=== PATIENT | male | born 1970 | race Hispanic/Latino ===

== ENCOUNTER 2023-06-09 23:37 | Inpatient (IN) | payer OTHER, SELFPAY ==
[2023-06-10 00:32] LABS: #Basophils 0.1 thou/uL (0.0-0.2); #Eosinphils 0.1 thou/uL (0.0-0.7); #Monocytes 0.7 thou/uL (0.11-0.59); #Neutrophils 2.9 thou/uL (1.40-6.50); %Basophils 0.8 % (0.0-1.0); %Eosinophils 1.3 % (0.0-10.0); %Lymphocytes 38.4 % (21.0-51.0); %Monocytes 11.5 % (0.0-10.0); %Neutrophils 47.5 % (42.0-75.0); Hematocrit 40.5 % (42.0-52.0); Hemoglobin 13.8 g/dL (14.0-18.0); Mean Corpuscular HGB CONC 34.1 g/dL (32.0-36.0); Mean Corpuscular Hemoglobin 31.9 pg (27.0-31.0); Mean Corpuscular Volume 93.5 fl (78.0-98.0); Mean Platelet Volume 8.7 fL (7.4-10.4); Platelet Count 170 10x3/uL (130-400); Red Blood Cell (RBC) Count 4.33 mill/uL (4.70-6.10)
[2023-06-10 01:00] LABS: ALT (SGPT) 25 U/L (8-55); AST (SGOT) 31 U/L (5-34); Albumin 3.3 g/dL (3.5-5.0); Alkaline Phosphatase 102 U/L (40-110); Anion Gap 10 mmol/L (10-20); BUN (Urea Nitrogen) 13 mg/dL (8.4-25.7); Bilirubin, Total 0.7 mg/dL (0.2-1.2); Calc. Creatinine Clearance 0 mL/min (70-130); Calcium 8.4 mg/dL (7.8-10.44); Carbon Dioxide 28 mmol/L (22-29); Chloride 102 mmol/L (98-107); Estimated GFR 92; Globulin 3.7 g/dL (2.4-3.5); Glucose 248 mg/dL (70-105); Lipase 49 U/L (8-78); Potassium 3.9 mmol/L (3.5-5.1); Sodium 136 mmol/L (136-145)
[2023-06-10 01:04] LABS: Troponin I Less than 0.010 ng/mL (< 0.028)
[2023-06-10] MEDS ORDERED: Acetaminophen 325 MG TAB PO PRN (01:29)
[2023-06-10] MEDS ORDERED: Ondansetron PF 4 MG/2 ML Vial IVP PRN (01:29)
[2023-06-10] MEDS ORDERED: Ondansetron ODT 4 MG TAB PO PRN (01:29)
[2023-06-10] MEDS ORDERED: Acetaminophen 650 MG Suppository PR PRN (01:29)
[2023-06-10] MEDS ORDERED: Nitroglycerin 0.4 MG TAB (25 Tab Bottle) SL PRN (01:31)
[2023-06-10] MEDS ORDERED: Dextrose 5% in Water 1,000 ML IV PRN (01:33)
[2023-06-10] MEDS ORDERED: Glucagon 1 MG/ML KIT IM PRN (01:33)
[2023-06-10] MEDS ORDERED: HumaLOG 300 UNITS/3 ML VIAL SC PRN (01:33)
[2023-06-10] MEDS ORDERED: Dextrose 50% Abboject 50 ML SYRINGE SLOW IVP PRN (01:33)
[2023-06-10] MEDS ORDERED: diphenhydrAMINE 25 MG CAP PO SCH (02:30)
[2023-06-10 03:13] VITALS: BMI 31.4
[2023-06-10] MEDS ORDERED: Ketorolac Tromethamine 30 MG (1 mL) VIAL IVP SCH (03:15)
[2023-06-10] MEDS ORDERED: diphenhydrAMINE 25 MG CAP PO PRN (04:43)
[2023-06-10] MEDS ORDERED: Ketorolac Tromethamine 30 MG (1 mL) VIAL ONE (05:16)
[2023-06-10] MEDS ORDERED: diphenhydrAMINE 25 MG CAP ONE (05:16)
[2023-06-10 07:14] LABS: Troponin I Less than 0.010 ng/mL (< 0.028)
[2023-06-10 07:21] LABS: Cardiac Risk 2.5 (Less than 4.5); Cholesterol 139 mg/dl (< 200 Desired); HDL Cholesterol 55 mg/dL (>60 Neg Risk); LDL Cholesterol, Calculated 74 mg/dL; Magnesium 1.8 mg/dL (1.6-2.6); Triglycerides 48 mg/dL (Less than 150)
[2023-06-10 07:42] LABS: Thyroid Stimulating Hormone 3.4858 uIU/mL (0.35-4.94)
[2023-06-10 09:40] LABS: Troponin I 0.014 ng/mL (< 0.028)
[2023-06-10] MEDS ORDERED: Aspirin Chewable 81 MG TAB ONE (11:03)
[2023-06-10] MEDS ORDERED: Acetaminophen 325 MG TAB ONE (11:03)
[2023-06-10] MEDS ORDERED: Enoxaparin 40 MG (0.4 mL) SYRINGE ONE (11:04)
[2023-06-10] MEDS ORDERED: Famotidine 20 MG TAB ONE (11:04)
[2023-06-10] MEDS: Enoxaparin 40 MG (0.4 mL) SYRINGE SC SCH (11:12)
[2023-06-10] MEDS: Famotidine 20 MG TAB PO SCH ×2 (13:22→19:49)
[2023-06-10] MEDS: Aspirin Chewable 81 MG TAB PO SCH (13:22)
[2023-06-10] MEDS ORDERED: Morphine 2 MG/ML VIAL SLOW IVP PRN (16:33)
[2023-06-10] MEDS ORDERED: FLU VACC QS2023-24(6MOS UP)/PF 60 MCG/0.5 ML SYRINGE IM ONE (18:30)
[2023-06-10] MEDS: HYDROcodone/Acetaminophen 10/325 mg Tablet PO PRN (19:49)
[2023-06-10 20:51] LABS: Amphetamine Detected (NotDetected); Barbiturates Screen Not Detected (NotDetected); Benzodiazepine Screen Not Detected (NotDetected); Cocaine Metabolite Screen Not Detected (NotDetected); Methadone Not Detected (NotDetected); Methamphetamine Detected (NotDetected); Opiate Screen Not Detected (NotDetected); Oxycodone Screen Not Detected (NotDetected); Phencyclidine (PCP) Not Detected (NotDetected); THC/Cannabinoid Screen Not Detected (NotDetected); Tricyclic Screen Not Detected (NotDetected)
[2023-06-11] MEDS: HYDROcodone/Acetaminophen 10/325 mg Tablet PO PRN ×3 (01:32→19:53)
[2023-06-11] MEDS: Aspirin Chewable 81 MG TAB PO SCH (09:28)
[2023-06-11] MEDS: Enoxaparin 40 MG (0.4 mL) SYRINGE SC SCH (09:29)
[2023-06-11] MEDS: Famotidine 20 MG TAB PO SCH ×2 (09:29→19:47)
[2023-06-11] MEDS: HumaLOG 300 UNITS/3 ML VIAL SC PRN (13:38)
[2023-06-11] MEDS ORDERED: Nicotine 21 MG PATCH TD SCH (16:00)
[2023-06-11] MEDS ORDERED: Triamcinolone 0.1% Cream 15 GM TUBE TOP SCH (23:00)
[2023-06-12] MEDS: HYDROcodone/Acetaminophen 10/325 mg Tablet PO PRN ×4 (01:44→22:38)
[2023-06-12] MEDS: Enoxaparin 40 MG (0.4 mL) SYRINGE SC SCH (09:26)
[2023-06-12] MEDS: Aspirin Chewable 81 MG TAB PO SCH (09:27)
[2023-06-12] MEDS: Famotidine 20 MG TAB PO SCH (09:27)
[2023-06-12] MEDS: Methocarbamol 500 MG TAB PO PRN ×2 (09:36→20:06)
[2023-06-12] MEDS: HumaLOG 300 UNITS/3 ML VIAL SC PRN (09:40)
[2023-06-12] MEDS: Triamcinolone 0.1% Cream 15 GM TUBE TOP SCH ×2 (09:42→20:36)
[2023-06-12] MEDS: traMADol HCl 50 MG TAB PO PRN (12:02)
[2023-06-12] MEDS ORDERED: Nicotine 14 MG PATCH TD PRN (12:23)
[2023-06-12] MEDS: predniSONE 20 MG TAB PO SCH (17:14)
[2023-06-13] MEDS: HYDROcodone/Acetaminophen 10/325 mg Tablet PO PRN ×3 (02:35→18:08)
[2023-06-13] MEDS: traMADol HCl 50 MG TAB PO PRN (05:37)
[2023-06-13] MEDS: predniSONE 20 MG TAB PO SCH ×2 (08:42→18:08)
[2023-06-13] MEDS: Aspirin Chewable 81 MG TAB PO SCH (08:42)
[2023-06-13] MEDS: Triamcinolone 0.1% Cream 15 GM TUBE TOP SCH ×2 (08:42→20:17)
[2023-06-13] MEDS: Enoxaparin 40 MG (0.4 mL) SYRINGE SC SCH (08:42)
[2023-06-13] MEDS: Methocarbamol 500 MG TAB PO PRN (08:42)
[2023-06-13] MEDS ORDERED: Gabapentin 100 MG CAP PO SCH ×2 (09:45→15:00)
[2023-06-13] MEDS ORDERED: Amlodipine 10 MG TAB PO SCH (09:45)
[2023-06-13] MEDS: HumaLOG 300 UNITS/3 ML VIAL SC PRN ×2 (13:04→18:09)
[2023-06-13] MEDS: Methocarbamol 500 MG TAB PO SCH ×3 (13:45→20:17)
[2023-06-13] MEDS: Gabapentin 100 MG CAP PO SCH ×2 (16:02→20:16)
[2023-06-13] MEDS: metFORMIN 500 MG TAB PO SCH (18:08)
[2023-06-13] MEDS ORDERED: traZODone HCl 50 MG TAB PO SCH (21:00)
[2023-06-14] MEDS: traMADol HCl 50 MG TAB PO PRN (04:56)
[2023-06-14 05:42] LABS: #Monocytes 0.7 thou/uL (0.11-0.59); %Basophils 0.4 % (0.0-1.0); %Eosinophils 0.1 % (0.0-10.0); %Lymphocytes 20.5 % (21.0-51.0); %Neutrophils 70.8 % (42.0-75.0); Hematocrit 39.2 % (42.0-52.0); Hemoglobin 13.5 g/dL (14.0-18.0); Mean Corpuscular HGB CONC 34.4 g/dL (32.0-36.0); Mean Corpuscular Volume 92.9 fl (78.0-98.0); Platelet Count 174 10x3/uL (130-400); RBC Distribution Width 12.6 % (11.5-14.5); Red Blood Cell (RBC) Count 4.22 mill/uL (4.70-6.10); White Blood Cell (WBC) Count 8.4 10x3/uL (4.8-10.8)
[2023-06-14 06:08] LABS: Anion Gap 12 mmol/L (10-20); BUN (Urea Nitrogen) 14 mg/dL (8.4-25.7); Calc. Creatinine Clearance 165 mL/min (70-130); Calcium 8.6 mg/dL (7.8-10.44); Carbon Dioxide 24 mmol/L (22-29); Chloride 103 mmol/L (98-107); Estimated GFR 109; Glucose 216 mg/dL (70-105); Potassium 3.7 mmol/L (3.5-5.1); Sodium 135 mmol/L (136-145)
[2023-06-14] MEDS ORDERED: Glimepiride 1 MG TAB PO SCH (08:45)
[2023-06-14] MEDS ORDERED: Amlodipine 10 MG TAB PO SCH (09:00)
[2023-06-14] MEDS: Aspirin Chewable 81 MG TAB PO SCH (09:14)
[2023-06-14] MEDS: Enoxaparin 40 MG (0.4 mL) SYRINGE SC SCH (09:14)
[2023-06-14] MEDS: Methocarbamol 500 MG TAB PO SCH ×3 (09:15→18:00)
[2023-06-14] MEDS: predniSONE 20 MG TAB PO SCH ×2 (09:15→17:59)
[2023-06-14] MEDS: Gabapentin 100 MG CAP PO SCH ×2 (09:15→14:47)
[2023-06-14] MEDS: Triamcinolone 0.1% Cream 15 GM TUBE TOP SCH (10:34)
[2023-06-14] MEDS: HYDROcodone/Acetaminophen 10/325 mg Tablet PO PRN (10:39)
[2023-06-14] MEDS: metFORMIN 500 MG TAB PO SCH (11:39)
[2023-06-14 11:53] VITALS: TEMP 98.1
[2023-06-14 15:39] VITALS: BP 136/84
[2023-06-14] MEDS ORDERED: metFORMIN 500 MG TAB PO SCH (17:00)
[2023-06-15] MEDS ORDERED: Glimepiride 1 MG TAB PO SCH (08:00)
== END 2023-06-14 19:00 | disposition home or self-care (01) | DRG 74 ==
LOC: ERS 23:37 → ERHOLD 06-10 01:35 → 2SW 06-10 17:57 → OBSVTOIN 06-11 10:32 → SURG A 06-12 15:50
PROVIDERS: ADMIT Student in an Organized Health Care Education/Training Program; ATTEND Hospitalist
DX: M54.12 Radiculopathy, cervical region (principal); R07.9 Chest pain, unspecified; I10 Essential (primary) hypertension; M19.041 Primary osteoarthritis, right hand; K43.9 Ventral hernia without obstruction or gangrene; Z98.890 Other specified postprocedural states; Z87.891 Personal history of nicotine dependence; E11.42 Type 2 diabetes mellitus with diabetic polyneuropathy; I45.10 Unspecified right bundle-branch block; E66.9 Obesity, unspecified; Z68.31 Body mass index [BMI] 31.0-31.9, adult
CPT/HCPCS: 36415; 36416; 71045; 72125; 78451; 80048; 80053; 80061; 80306; 82607; 83036; 83690; 83735; 84443; 84484; 85025; 93005; 93306; 94760; 96372; 96374; A9502; G0378; J1650; J1815; J1885; J7512